=== PATIENT | male | born 1980 | race Caucasian/White ===

== ENCOUNTER 2021-12-05 06:40 | Emergency (ER) | payer MEDICAID, SELFPAY ==
[2021-12-05 06:41] VITALS: BP 152/83; PULSE 84; RESP 17; TEMP 36.6; O2SAT 98; BMI 35.9
--- NOTE | 2021-12-05 07:34 | MRI_ITS ---
STUDY: MRI LUMBAR SPINE WITH AND WITHOUT CONTRAST REASON FOR EXAM: Male, 41 years old. pain, BLE radicular sx -- has ankle tracker that will need removed prior to imaging TECHNIQUE: Standardized fat and water weighted pulse sequences were obtained in the sagittal and axial planes. 25ML Dotarem via IV was administered for the contrast portion of the examination. COMPARISON: None FINDINGS: T12-L1: Normal endplates. Normal disc height, hydration and morphology. Normal bilateral facet joints. Normal central canal and bilateral lateral recesses. Normal bilateral intervertebral neural foramina. Normal lumbar lordosis. There is no substantial scoliosis. Normal conus medullaris that terminates at the L1/L2. L1-2: Mild bilobed disc protrusion produces mild central stenosis and mild bilateral neural foraminal stenosis. L2-3: Normal endplates. Normal disc height, hydration and morphology. Normal bilateral facet joints. Normal central canal and bilateral lateral recesses. Normal bilateral intervertebral neural foramina. L3-4: Normal endplates. Normal disc height, hydration and morphology. Normal bilateral facet joints. Normal central canal and bilateral lateral recesses. Normal bilateral intervertebral neural foramina. L4-5: Normal endplates. Normal disc height, hydration and morphology. Normal bilateral facet joints. Normal central canal and bilateral lateral recesses. Normal bilateral intervertebral neural foramina. L5-S1: Mild broad disc protrusion with a moderate sized right paracentral disc protrusion produces mild spinal stenosis, moderate right lateral recess stenosis, mild left lateral recess stenosis and mild bilateral neural foraminal stenosis. Normal visualized sacral ala. Normal visualized paraspinous soft tissue structures. There is no demonstrated abnormal enhancement. MRI/Spine Lumbar W/WO Contrast IMPRESSION: Multilevel degenerative changes, as described above. Electronically Signed: Siddhartha Dhillon MD at 9:58 EST Tel , Service support ,
--- NOTE | 2021-12-05 07:36 | ED.VIS.BACK ---
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 The pain radiates down both of his legs posteriorly to the feet. The left is worse with regards to pain and numbness but both are affected. He denies any perineal or anal/genitalia involvement. He has been urinating okay without retention or incontinence, his last bowel movement was around 13 hours ago and was unremarkable, and without symptoms of bowel retention or incontinence. He is not an IV drug user and has had no fevers, and no history of cancer that he knows of. No abdominal pain. No recent illness or injury, but he does repetitive lifting at work. He has never had these back issues before. He has no PCP so he came to the emergency department. [facility] Medical History no medical history no medical history Home Medications ferrous sulfate [Iron (ferrous sulfate)] 325 mg PO DAILY 12/05/21 [History Last Taken Unknown] hydrocodone-acetaminophen 1 tab PO Q4H PRN PRN 3 Days #18 tablet 12/05/21 [Rx Last Taken Unknown] multivitamin 1 tab PO DAILY 12/05/21 [History Last Taken Unknown] Allergy/AdvReac Type Severity Reaction Status Date / Time naproxen [From Naprosyn] Allergy Hives Verified 12/05/21 06:46 Surgical History (Updated 12/05/21 @ 07:[address] Stewart Tran MD) History of hand surgery History of herniorrhaphy Social History Smoking Status: Current every day smoker tobacco type: cigarettes ROS ROS ED Constitutional Constitutional ED: Denies chills or fever(s) Eyes Eyes: Denies change in vision or diplopia ENT ENT ED: Denies rhinorrhea or sore throat Cardiovascular Cardiovascular: Denies chest pain or palpitations Respiratory/Chest Respiratory/Chest: Denies cough or dyspnea Gastrointestinal Gastrointestinal: Denies abdominal pain, constipation, fecal incontinence, nausea or vomiting Genitourinary Genitourinary ED: Reports other Details: no urinary retention ; Denies abdominal discomfort or urinary incontinence Musculoskeletal Musculoskeletal: Reports as per HPI and back pain; Denies neck pain Integumentary Denies rash or wounds Neurologic Neurologic: Reports paresthesias and radicular pain; Denies headache(s) or weakness Psychiatric Psychiatric: Denies anxiety or suicidal thoughts EXAM Physical Exam Const Vital Signs: 12/05/21 06:41 Temperature 97.9 F Temperature Source Temporal Pulse Rate 84 Respiratory Rate 17 Blood Pressure 152/83 H Blood Pressure Mean 106 Pulse Ox 98 Oxygen Delivery Method Room Air Positive well nourished, well developed and obese General Appearance ED: well developed and NAD Nutritional Appearance: obese HEENT Reports moist mucous membranes Negative for trauma or tenderness Eyes PERRL and EOMs intact bilaterally Neck full ROM and supple Resp normal respiratory effort and clear to auscultation bilaterally Cardio regular rate, regular rhythm and no murmurs GI normal to inspection, nondistended, normoactive bowel sounds, soft to palpation and non-tender Auscultation: normoactive bowel sounds Palpation: soft Rectal Exam: abnormal sphincter tone decreased (Suspected decreased, but obesity limits exam somewhat) and other Other Details: Nonbloody light brown stool present ; Negative for external hemorrhoid(s), anal fissure or tenderness Groin / Perineum Exam: Negative for erythema, lesions, perineal induration, perineum crepitus or tenderness Back/Spine normal to inspection General Back: other FROM Thoracic Spine / Upper Back: paraspinal muscle tenderness Lumbar Spine / Lower Back: ROM limited and straight leg raise negative bilaterally Extremity normal to inspection, full ROM and no pedal edema General Extremety ED: Negative for edema, pulses abnormal or tenderness General Extremity: Negative for edema or pulses abnormal Neuro oriented x3 Neuro Narrative: Antalgic gait. Lower extremity strength intact but limited evaluation due to pain in back with moving lower extremities. Sensorium / Orientation: alert Motor Exam: muscle tone normal throughout and clonus absent Deep Tendon Reflexes: Rt Patellar (L4): 2+, Lt Patellar (L4): 2+, Rt Ankle (S1): 2+ and Lt Ankle (S1): 2+ Deep Tendon Reflexes Back: Rt Patellar (L4): 2+, Lt Patellar (L4): 2+, Rt Ankle (S1): 2+ and Lt Ankle (S1): 2+ Plantar Reflex: Downgoing: bilateral Psych mental status grossly normal and thought process normal Skin no rashes or lesions noted and no wounds MDM MDM MDM Narrative Medical decision making narrative: I feel the patient needs a stat MRI in order to ensure he does not have emergent compressive syndrome in his lumbosacral spine. Blood work was also obtained in order to foot findings in the context. We had to wait for the [facility]'s department/chief technical officer to respond so we can get his ankle bracelet off in order to safely enter the MRI machine. The results of the MRI were discussed with the patient, he has 2 different levels with disc issues, one is at T12-L1 and the other which is more likely to be causing the patient's symptoms is at L5-S1. Nothing here that requires emergent surgery. Patient will be given note for work, lifting restrictions, prescription for analgesics, and referral to spine. Lab Data Attestation: I reviewed the patient's lab results. Labs: Laboratory Results - last 24 hr 12/05/21 12/05/21 07:53 07:53 WBC 11.7 H RBC 4.57 L Hgb 14.3 Hct 42.0 MCV 91.9 MCH 31.3 MCHC 34.0 RDW Std Deviation 43.8 RDW Coeff of Loreta 13.1 Plt Count 235 MPV 10.2 Immature Gran % (Auto) 0.300 Neut % (Auto) 67.0 Lymph % (Auto) 23.2 [place] % (Auto) 6.3 Eos % (Auto) 2.5 Baso % (Auto) 0.7 Absolute Neuts (auto) 7.8 H Absolute Lymphs (auto) 2.70 Nucleated RBC % 0 Sodium 138 Potassium 3.9 Chloride 107 Carbon Dioxide 25.0 Anion Gap 6 BUN 15 Creatinine 0.82 Estim Creat Clear Calc 140.62 Est GFR (MDRD) Af Amer 133 Est GFR (MDRD) Non-Af 110 BUN/Creatinine Ratio 18.2 Glucose 101 Calcium 9.1 Radiography Diagnostic Testing: Clinical Impression(s) from Imaging Studies Lumbar Spine MRI 12/05/21 07:34 IMPRESSION: Multilevel degenerative changes, as described above. Electronically Signed: Siddhartha Dhillon MD at 9:58 EST Tel , Service support , STUDY: MRI LUMBAR SPINE WITH AND WITHOUT CONTRAST REASON FOR EXAM: Male, 41 years old. pain, BLE radicular sx -- has ankle tracker that will need removed prior to imaging TECHNIQUE: Standardized fat and water weighted pulse sequences were obtained in the sagittal and axial planes. 25ML Dotarem via IV was administered for the contrast portion of the examination. COMPARISON: None FINDINGS: T12-L1: Normal endplates. Normal disc height, hydration and morphology. Normal bilateral facet joints. Normal central canal and bilateral lateral recesses. Normal bilateral intervertebral neural foramina. Normal lumbar lordosis. There is no substantial scoliosis. Normal conus medullaris that terminates at the L1/L2. L1-2: Mild bilobed disc protrusion produces mild central stenosis and mild bilateral neural foraminal stenosis. L2-3: Normal endplates. Normal disc height, hydration and morphology. Normal bilateral facet joints. Normal central canal and bilateral lateral recesses. Normal bilateral intervertebral neural foramina. L3-4: Normal endplates. Normal disc height, hydration and morphology. Normal bilateral facet joints. Normal central canal and bilateral lateral recesses. Normal bilateral intervertebral neural foramina. L4-5: Normal endplates. Normal disc height, hydration and morphology. Normal bilateral facet joints. Normal central canal and bilateral lateral recesses. Normal bilateral intervertebral neural foramina. L5-S1: Mild broad disc protrusion with a moderate sized right paracentral disc protrusion produces mild spinal stenosis, moderate right lateral recess stenosis, mild left lateral recess stenosis and mild bilateral neural foraminal stenosis. Normal visualized sacral ala. Normal visualized paraspinous soft tissue structures. There is no demonstrated abnormal enhancement. Discharge Plan Triage Chief Complaint: Back ED Provider: Stewart Tran Dx/Rx/DC Orders Clinical Impression: Acute bilateral low back pain with bilateral sciatica, Herniation of intervertebral disc between L5 and S1 Instructions: ED Herniated Intervertebral Disk Prescriptions: New hydrocodone-acetaminophen [hydrocodone-acetaminophen] 1 TABLET tablet 1 tab PO Q4H PRN PRN (Reason: Pain) 3 Days Qty: 18 RF: 0 No Action multivitamin Tablet 1 tab PO DAILY RF: 0 ferrous sulfate [Iron (ferrous sulfate)] 325 mg (65 mg iron) Tablet 325 mg PO DAILY RF: 0 Stand Alone Forms: ED Work / School Excuse, Work Status Form Primary Care Provider: Care Physician,No Primary Referrals: Vipul Oakley DO [STAFF PHYSICIAN] - As soon as possible Care Physician,No Primary [Primary Care Provider] - Disposition Disposition: Home, Self Care
[2021-12-05] MEDS: Morphine 4 MG/ML Syringe IV (08:03)
[2021-12-05 08:11] LABS: Absolute Neutrophil Count 7.8 X10^3/uL (2.0-7.7); Basophil# 0.08 X10^3/uL; Basophil% 0.7 % (0-1); Eosinophil# 0.29 X10^3/uL; Eosinophils% 2.5 % (0-5); Hemoglobin 14.3 g/dL (13.0-16.5); Lymphocyte % 23.2 % (19-41); Mean Corpuscular Hgb 31.3 pg (27.0-32.0); Mean Corpuscular Volume 91.9 fL (80-94); Mean Platelet Vol. 10.2 fl (6.2-12.0); Monocyte# 0.74 X10^3/uL; Monocyte% 6.3 % (0-10); NRBC Flagged by Analyzer 0 % (0-5); Neutrophil # 7.81 X10^3/uL (2.7-7.7); Platelet Count 235 K/mm3 (150-450); RBC Distribution Width CV 13.1 % (11.6-14.6); RBC Distribution Width SD 43.8 fl (35.1-43.9); Red Blood Count 4.57 M/mm3 (4.6-6.2); White Blood Count 11.7 K/mm3 (4.4-11.0)
[2021-12-05 08:23] LABS: Anion Gap 6 (5-15); BUN 15 mg/dL (7-18); BUN/Creat Ratio 18.2 RATIO (10-20); Calcium,Total 9.1 mg/dL (8.5-10.1); Chloride 107 mmol/L (98-107); Creatinine, Serum 0.82 mg/dL (0.70-1.30); EST Glomerular Filtration Rate 110 mL/min (>60); Est Glom Filt Rate - Afr Amer 133 mL/min (>60); Estimated Creatinine Clearance 140.62 ml/min; Glucose 101 mg/dL (74-106); Potassium 3.9 mmol/L (3.5-5.1); Sodium Level 138 mmol/L (136-145)
== END 2021-12-05 10:54 | disposition home or self-care (01) ==
PROVIDERS: Emergency Provider Emergency Medicine; Visit Provider Emergency Medicine
DX: M54.42 Lumbago with sciatica, left side (principal); M51.27 Other intervertebral disc displacement, lumbosacral region; M54.41 Lumbago with sciatica, right side; F17.210 Nicotine dependence, cigarettes, uncomplicated; E66.9 Obesity, unspecified; Z68.35 Body mass index [BMI] 35.0-35.9, adult
CPT/HCPCS: 72158; 80048; 85025; 96374; 99283; A9575; A4216

== ENCOUNTER 2023-07-21 13:52 | Emergency (ER) | payer MEDICAID, SELFPAY ==
[2023-07-21 13:54] VITALS: BP 183/109; PULSE 113; RESP 16; TEMP 36.6; O2SAT 99; BMI 38.4
--- NOTE | 2023-07-21 15:06 | EKG12_ITS ---
Test Reason : DETOX Blood Pressure : / mmHG Vent. Rate : 085 BPM Atrial Rate : 085 BPM P-R Int : 160 ms QRS Dur : 086 ms QT Int : 394 ms P-R-T Axes : 047 076 047 degrees QTc Int : 468 ms Normal sinus rhythm Normal ECG Confirmed by FRANCO VERMA MD ([id number]), advertising editor BRI CHAVEZ ([id number]) on 07/29/2023 7:32:30 AM Referred By: KENNETH Confirmed By:FRANCO VERMA MD
--- NOTE | 2023-07-21 15:11 | EDS_ITS ---
HPI <GABI Cooper - Last Filed: 07/21/23 19:28> History of Present Illness Chief Complaint: Substance Abuse Narrative Narrative: Patient is a 43-year-old male with history of hypertension, tobacco use who presents to the emergency department for bizarre behavior as well as using methamphetamine. Patient is here with his friend and his daughter. Per the patient, he has been using methamphetamines significant over the last 1 week. The patient is now having bizarre paranoid behavior. He thinks that the entire family is plotting against him. He did send some troubling text to his sister as well as to his daughter. Patient is denying any suicidal homicidal behavior here. However patient is experiencing paranoia and intermittent hallucinations. PFSH <GABI Cooper - Last Filed: 07/21/23 19:28> PFSH Home Medications ferrous sulfate 325 mg (65 mg iron) tablet (Iron (ferrous sulfate)) 325 mg PO DAILY 12/05/21 [History Last Taken Unknown] hydrocodone-acetaminophen 5-325mg 5mg-325mg 1 tab PO Q4H PRN PRN Pain 3 days #18 TABLETS 12/05/21 [Rx Last Taken Unknown] multivitamin 1 tab PO DAILY 12/05/21 [History Last Taken Unknown] Allergy/AdvReac Type Severity Reaction Status Date / Time naproxen [From Naprosyn] Allergy Hives Verified 07/21/23 13:57 Surgical History History of hand surgery History of herniorrhaphy Social History (Updated 12/20/21 @ 10:10 by Jessica Hannah) household members: family Smoking Status: Current every day smoker tobacco type: cigarettes ROS <GABI Cooper - Last Filed: 07/21/23 19:28> ROS ED ROS Narrative Constitutional: Negative for fever, chills, weight loss, weakness Eyes: Negative for vision loss, vision change, double vision ENT: Negative for any sore throat, ear pain, congestion Cardiovascular: Negative for any chest pain, tightness, palpitations Respiratory: Negative for any cough, sputum production, hemoptysis, dyspnea, dyspnea on exertion, orthopnea Gastrointestinal: Negative for any abdominal pain, nausea, vomiting, diarrhea, constipation, blood in stool, blood in vomit : Negative for any urinary frequency, dysuria, retention, blood in urine Muscle skeletal: Negative for any muscle joint pain, stiffness, myalgias, arthralgias, neck pain, back pain Neurological: Negative for any headache, syncope, numbness or tingling, dizziness Skin: Negative for any rashes, lumps, itching, abrasions, lacerations Psychiatric: Negative for any depression, suicidal ideation, homicidal ideation. Positive for anxiety, paranoia. Hematologic: Negative for any easy bruising, excessive bruising, easy bleeding Allergies: Negative for any eczema, hives, rash EXAM <GABI Cooper - Last Filed: 07/21/23 19:28> Physical Exam Narrative Exam Narrative: Vital signs reviewed. Patient is looking around the room, he does look nervous, he does state things that he thinks that the band is moving secondary to there being devices in it. He also thinks that there are people listening in the sebast[place]. He denies any suicidal homicidal ideation. HEET: Head normocephalic atraumatic, TMs clear bilaterally. Posterior pharynx is clear, moist mucous membranes. Nares clear bilaterally. Neck: Supple with no lymphadenopathy or tenderness. No signs of meningismus, negative jolt sign. Cardiac: Regular rate and rhythm no murmurs gallops or rubs, equal peripheral pulses bilaterally. Respiratory: Lateral expiratory wheezes.. No chest tenderness. Abdomen: Soft, nontender, nondistended. No abdominal bruit or pulsatile masses. No hepatosplenomegaly Extremities: No peripheral edema, no signs of gross trauma or deformity. Active full range of motion of all extremities. Neuro: Cranial nerves II through XII intact, no focal neurological deficits. Skin: Clean dry and intact with no rash, purpura, petechiae, vesicles or pustules. Backs/flank: No CVA tenderness, no midline spinal tenderness, no deformity. Psych: Appears to be intoxicated with methamphetamines. Patient denies any suicidal homicidal ideation however he is acting bizarre. He does have paranoia. Const Vital Signs: 07/21/23 13:54 Temperature 97.8 F Temperature Source Temporal Pulse Rate 113 H Respiratory Rate 16 Blood Pressure 183/109 H Blood Pressure Mean 133 Pulse Ox 99 Oxygen Delivery Method Room Air <Dr. Joshua Sandoval MD - Last Filed: 07/21/23 15:54> Physical Exam Const Vital Signs: 07/21/23 13:54 Temperature 97.8 F Temperature Source Temporal Pulse Rate 113 H Respiratory Rate 16 Blood Pressure 183/109 H Blood Pressure Mean 133 Pulse Ox 99 Oxygen Delivery Method Room Air [facility] <Lalito Danielle NPKelsiC - Last Filed: 07/21/23 19:28> [facility] Lab Data Labs: Laboratory Results - last 24 hr 07/21/23 07/21/23 15:25 16:55 WBC 10.4 RBC 4.71 Hgb 15.4 Hct 44.8 MCV 95.1 H MCH 32.7 H MCHC 34.4 RDW Std Deviation 42.5 RDW Coeff of Loreta 12.2 Plt Count 217 MPV 10.8 Immature Gran % (Auto) 0.800 Neut % (Auto) 66.7 Lymph % (Auto) 22.1 [place] % (Auto) 8.8 Eos % (Auto) 0.9 Baso % (Auto) 0.7 Absolute Neuts (auto) 6.9 Absolute Lymphs (auto) 2.30 Nucleated RBC % 0 Sodium 137 Potassium 3.6 Chloride 109 H Carbon Dioxide 21.0 Anion Gap 7 BUN 10 Creatinine 0.92 Estim Creat Clear Calc 122.85 Est GFR (MDRD) Af Amer 117 Est GFR (MDRD) Non-Af 97 BUN/Creatinine Ratio 10.9 Glucose 110 H Calcium 9.3 Urine Opiates Screen NEGATIVE Urine Methadone Screen NEGATIVE Ur Barbiturates Screen NEGATIVE Ur Phencyclidine Scrn NEGATIVE Ur Amphetamines Screen POSITIVE H MDMA (Ecstasy) Screen POSITIVE H U Benzodiazepines Scrn NEGATIVE Urine Cocaine Screen NEGATIVE U Cannabinoids Screen NEGATIVE Ur Drug Screen Comment EKG Normal sinus rhythm, rate of 85 bpm: Attestation: I personally reviewed and interpreted this EKG as follows: Interpretation: Sinus Rhythm Comments: 85 bpm, FL interval 160 ms, QRS duration 86 ms, no acute ST elevation, no acute infarct noted Treatment and Re-Evaluation :: Patient is acting bizarre, paranoid. Patient does admit to using methamphetamines over the last week. Patient's last use was yesterday morning. Patient has not slept for 3 days. Patient is here with family is concerning for his behavior. At this time, patient was given 1 mg of Ativan.Patient will have basic laboratory values done looking for any electrolyte abnormality. EKG was unremarkable. Patient will receive urine drug screen. Patient does have his father in the room with him. Patient CBC, chemistries were unremarkable. Drug screen is not back yet. Patient given IV fluids. Patient is in a safe space, and is stable. Patient laboratory values were unremarkable CBC was unremarkable, chemistries were unremarkable, patient's toxicology screens were positive for ecstasy as well as amphetamines. On reassessment, the patient was acting much more appropriate. I spoke with the patient the patient's father they feel comfortable taking the patient home. The patient recognizes he needs to quit methamphetamines. He no longer feels paranoid like he did. He has no suicidal homicidal ideation. The father feels comfortable taking home. All questions answered, patient stable for discharge <Dr. Joshua Sandoval MD - Last Filed: 07/21/23 15:54> [facility] MDM Narrative Medical decision making narrative: I have personally performed a face to face assessment of the patient and have reviewed the ANJELICA Note. I performed a substantive portion of the visit including all aspects of the following. My carter findings include: History is 43-year-old male that I am evaluate with our nurse practitioner. Has been on a methamphetamine carrizales. States he smokes it. Has been having hallucinations. Denies any psychiatric history. Exam is [well-appearing 43-year-old male. Vital signs stable afebrile. Patient coming by his father. H EENT exam unremarkable. Neck nontender. No lymphadenopathy. Lungs clear to auscultation bilaterally. Heart regular rhythm no murmur. Abdomen soft nontender. Extremities moves all 4. Calves are nontender without edema. Neurologically is awake and alert. NIH is 0. Normal motor strength. Answering questions following commands.] Medical Decision Making [43-year-old male methamphetamine abuse. Hallucinations and psychosis due to methamphetamine. Currently he is calm and acting normally. Screening labs being obtained. He does not want detox.] Other additions or changes: [None] Lab Data Attestation: I reviewed the patient's lab results. Lab results narrative: CBC normal. White count of 10.4. H&H of 15 and 44. Platelets 217. Labs: Laboratory Results - last 24 hr 07/21/23 07/21/23 15:25 16:55 WBC 10.4 RBC 4.71 Hgb 15.4 Hct 44.8 MCV 95.1 H MCH 32.7 H MCHC 34.4 RDW Std Deviation 42.5 RDW Coeff of Loreta 12.2 Plt Count 217 MPV 10.8 Immature Gran % (Auto) 0.800 Neut % (Auto) 66.7 Lymph % (Auto) 22.1 [place] % (Auto) 8.8 Eos % (Auto) 0.9 Baso % (Auto) 0.7 Absolute Neuts (auto) 6.9 Absolute Lymphs (auto) 2.30 Nucleated RBC % 0 Sodium 137 Potassium 3.6 Chloride 109 H Carbon Dioxide 21.0 Anion Gap 7 BUN 10 Creatinine 0.92 Estim Creat Clear Calc 122.85 Est GFR (MDRD) Af Amer 117 Est GFR (MDRD) Non-Af 97 BUN/Creatinine Ratio 10.9 Glucose 110 H Calcium 9.3 Urine Opiates Screen NEGATIVE Urine Methadone Screen NEGATIVE Ur Barbiturates Screen NEGATIVE Ur Phencyclidine Scrn NEGATIVE Ur Amphetamines Screen POSITIVE H MDMA (Ecstasy) Screen POSITIVE H U Benzodiazepines Scrn NEGATIVE Urine Cocaine Screen NEGATIVE U Cannabinoids Screen NEGATIVE Ur Drug Screen Comment Rhythm Strip Rhythm Strip: Sinus Rhythm Rate: 85 Ectopy: None EKG Initial EKG: Attestation: I personally reviewed and interpreted this EKG as follows: Interpretation: Sinus Rhythm and No Acute Injury Pattern Comments: Normal sinus rhythm rate 85 no acute signs of NE nor ischemia nor dysrhythmia. Discharge Plan Triage Chief Complaint: Substance Abuse ED Midlevel Provider: Lalito Danielle ED Provider: Joshua Sandoval Dx/Rx/DC Orders Clinical Impression: Amphetamine use, Drug-induced paranoia or hallucinations Instructions: Meth Abuse Addiction, ED Psychosis Prescriptions: No Action multivitamin Tablet 1 tab PO DAILY ferrous sulfate [Iron (ferrous sulfate)] 325 mg (65 mg iron) Tablet 325 mg PO DAILY hydrocodone-acetaminophen [hydrocodone-acetaminophen] 1 TABLET tablet 1 tab PO Q4H PRN PRN (Reason: Pain) 3 Days Qty: 18 0RF Primary Care Provider: Care Physician,No Primary Referrals: Care Physician,No Primary [Primary Care Provider] - [facility] [Non-Staff] - Activity Restrictions/Additional Instructions: Follow-up outpatient. This is a drug abuse place Disposition Disposition: Home, Self Care
[2023-07-21] MEDS: 0.9% Normal Saline (1000mL) 1,000 ML 1000 ML IV (15:24)
[2023-07-21] MEDS: LORazepam 2 MG/ML Syringe 1 MG IV (15:25)
[2023-07-21 15:44] LABS: Absolute Neutrophil Count 6.9 X10^3/uL (2.0-7.7); Basophil# 0.07 X10^3/uL; Basophil% 0.7 % (0-1); Eosinophil# 0.09 X10^3/uL; Eosinophils% 0.9 % (0-5); Hematocrit 44.8 % (40-54); Hemoglobin 15.4 g/dL (13.0-16.5); Lymphocyte % 22.1 % (19-41); Mean Corp Hgb Conc 34.4 g/dL (32-36); Mean Corpuscular Hgb 32.7 pg (27.0-32.0); Mean Corpuscular Volume 95.1 fL (80-94); Mean Platelet Vol. 10.8 fl (6.2-12.0); Monocyte# 0.92 X10^3/uL; Monocyte% 8.8 % (0-10); NRBC Flagged by Analyzer 0 % (0-5); Neutrophil # 6.94 X10^3/uL (2.7-7.7); Neutrophil % 66.7 % (47-70); Platelet Count 217 K/mm3 (150-450); RBC Distribution Width CV 12.2 % (11.6-14.6); RBC Distribution Width SD 42.5 fl (35.1-43.9); Red Blood Count 4.71 M/mm3 (4.6-6.2); White Blood Count 10.4 K/mm3 (4.4-11.0)
[2023-07-21 16:02] LABS: Anion Gap 7 (5-15); BUN 10 mg/dL (7-18); BUN/Creat Ratio 10.9 RATIO (10-20); Calcium,Total 9.3 mg/dL (8.5-10.1); Chloride 109 mmol/L (98-107); Creatinine, Serum 0.92 mg/dL (0.70-1.30); EST Glomerular Filtration Rate 97 mL/min (>60); Est Glom Filt Rate - Afr Amer 117 mL/min (>60); Estimated Creatinine Clearance 122.85 ml/min; Glucose 110 mg/dL (74-106); Potassium 3.6 mmol/L (3.5-5.1); Sodium Level 137 mmol/L (136-145)
[2023-07-21 17:26] LABS: Amphetamine Urine VISTA POSITIVE (<1000 ng/mL); Barbiturate Urine VISTA NEGATIVE (< 200 ng/mL); Benzodiazepine Urine VISTA NEGATIVE (< 200 ng/mL); Cocaine Urine VISTA NEGATIVE (< 300 ng/mL); Ecstacy Urine VISTA POSITIVE (< 500 ng/mL); Methadone Urine VISTA NEGATIVE (< 300 ng/mL); PCP Urine VISTA NEGATIVE (< 25 ng/mL); THC Urine VISTA NEGATIVE (< 50 ng/mL); Vista UDS pH Range 5
== END 2023-07-21 20:08 | disposition home or self-care (01) ==
PROVIDERS: Nurse Practitioner; Emergency Provider Emergency Medicine; Visit Provider Emergency Medicine
DX: F15.99 Other stimulant use, unspecified with unspecified stimulant-induced disorder (principal); F29 Unspecified psychosis not due to a substance or known physiological condition; F17.210 Nicotine dependence, cigarettes, uncomplicated
CPT/HCPCS: 96361; 80048; 80307; 85025; 93005; 96374; 99283; J7030; A4216

== ENCOUNTER 2023-10-31 19:09 | Emergency (ER) | payer MEDICAID, SELFPAY ==
[2023-10-31 19:10] VITALS: BP 150/95; PULSE 83; RESP 22; TEMP 37.2; O2SAT 99
--- NOTE | 2023-10-31 20:03 | EKG12_ITS ---
Test Reason : CP Blood Pressure : / mmHG Vent. Rate : 075 BPM Atrial Rate : 075 BPM P-R Int : 172 ms QRS Dur : 088 ms QT Int : 386 ms P-R-T Axes : 063 076 049 degrees QTc Int : 431 ms Normal sinus rhythm Normal ECG Confirmed by LUCI JOHNSON, FRANCO ([id number]), field map editor KATHY BARRERA ([id number]) on 11/01/2023 2:04:22 PM Referred By: RAJAN Confirmed By:FRANCO VERMA MD
--- NOTE | 2023-10-31 20:07 | EDS_ITS ---
HPI History of Present Illness Chief Complaint: Shortness of Breath Informant: patient Onset/Context/Timing Onset: Weeks Narrative Narrative: Patient presents with continued shortness of breath, cough, chest pain after having a positive home COVID test 2 and half weeks ago. He states he is really been sick for about the last month. He tested positive for COVID 2 and half weeks ago. He states he got slightly better but once he stopped taking his cough syrup with narcotic in it he started getting worse again. He states he has not actually measured a fever but will have sweats and chills. He has chest congestion but states he is not bringing up any sputum with his cough. He reports an aching pain in the center of his chest. He states he just feels absolutely exhausted and any activity wipes him out. PFSH PFSH Medical History no medical history no medical history Home Medications ferrous sulfate 325 mg (65 mg iron) tablet (Iron (ferrous sulfate)) 325 mg PO DAILY 12/05/21 [History Last Taken Unknown] hydrocodone-acetaminophen 5-325mg 5mg-325mg 1 tab PO Q4H PRN PRN Pain 3 days #18 TABLETS 12/05/21 [Rx Last Taken Unknown] multivitamin 1 tab PO DAILY 12/05/21 [History Last Taken Unknown] prednisone 20 mg tablet 40 mg (2 x 20 mg) PO DAILY #8 tabs 10/31/23 [Rx Last Taken Unknown] Allergy/AdvReac Type Severity Reaction Status Date / Time naproxen [From Naprosyn] Allergy Hives Verified 10/31/23 19:13 Surgical History History of hand surgery History of herniorrhaphy Social History household members: family Smoking Status: Current every day smoker tobacco type: cigarettes ROS ROS ED Constitutional Constitutional ED: Reports chills and sweats Eyes Eyes: Denies change in vision or discharge from eye(s) ENT ENT ED: Denies discharge from eye(s), rhinorrhea or sore throat Cardiovascular Cardiovascular: Reports chest pain; Denies palpitations Respiratory/Chest Respiratory/Chest: Reports cough and dyspnea; Denies sputum Gastrointestinal Gastrointestinal: Denies abdominal pain, diarrhea, nausea or vomiting Genitourinary Genitourinary ED: Denies dysuria Musculoskeletal Musculoskeletal: Reports myalgias; Denies back pain or extremity pain Integumentary Denies Abrasions or rash Neurologic Neurologic: Reports weakness; Denies headache(s) Psychiatric Psychiatric: Denies anxiety or depression Allergic/Immunologic Allergic/Immunologic ED: Denies lip swelling or urticaria EXAM Physical Exam Const Vital Signs: 10/31/23 19:10 10/31/23 20:48 10/31/23 22:38 Temperature 98.9 F Temperature Source Temporal Pulse Rate 83 65 Respiratory Rate 22 H 12 Respiratory Effort Short of Breath Respiratory Depth Deep Respiratory Pattern Tachypnea Normal Blood Pressure 150/95 H Blood Pressure Mean 113 Pulse Ox 99 Oxygen Delivery Method Room Air Room Air Positive well nourished and well developed General Appearance ED: well developed HEENT Reports moist mucous membranes Eyes EOMs intact bilaterally Chest Wall inspection of chest normal and palpation of chest normal Resp normal respiratory effort and clear to auscultation bilaterally Cardio regular rate and regular rhythm GI non-tender Palpation: soft Extremity normal to inspection Neuro oriented x3 and no sensory deficits noted Motor Exam: strength 5/5 throughout Skin Skin Narrative: Diaphoretic MDM MDM MDM Narrative Medical decision making narrative: Patient placed on conveyor monitor. EKG obtained to evaluate for cardiac arrhythmia/ischemia. Chest x-ray obtained to evaluate for acute lung pathology, cardiac size, or mediastinal abnormality. Labwork obtained to evaluate for leukocytosis, anemia, and electrolyte derangement. Blood cultures obtained. Patient given IV fluids along with Robitussin AC to help control cough. History & Record Review Discussion w/independent historian: Patient and Family Lab Data Attestation: I reviewed the patient's lab results. Labs: Laboratory Results - last 24 hr 10/31/23 20:15 WBC 11.7 H RBC 5.10 Hgb 16.1 Hct 46.1 MCV 90.4 MCH 31.6 MCHC 34.9 RDW Std Deviation 41.0 RDW Coeff of Lore[place] 12.4 Plt Count 202 MPV 10.3 Immature Gran % (Auto) 0.400 Neut % (Auto) 66.0 Lymph % (Auto) 23.9 [place] % (Auto) 7.1 Eos % (Auto) 1.7 Baso % (Auto) 0.9 Absolute Neuts (auto) 7.7 Absolute Lymphs (auto) 2.78 Nucleated RBC % 0 D-Dimer Quant (PE/DVT) < 0.27 L Sodium 138 Potassium 3.7 Chloride 108 H Carbon Dioxide 22.0 Anion Gap 8 BUN 13 Creatinine 1.05 Est GFR (MDRD) Af Amer 100 Est GFR (MDRD) Non-Af 82 BUN/Creatinine Ratio 12.4 Glucose 102 Calcium 9.4 Troponin I High Sens 5 Radiography Chest X-Ray - ED: 1 View, Read by ED Physician, Normal, Heart, Lungs and Mediastinum Diagnostic Testing: Clinical Impression(s) from Imaging Studies Chest X-Ray 10/31/23 20:20 IMPRESSION: No radiographic evidence of acute cardiopulmonary disease. Electronically Signed: Jeff DO Paramjit at 20:53 EST , Treatment and Re-Evaluation :: CBC was white count elevated 11.7 with normal differential. Chemistry studies unremarkable. Troponin is normal at 5 and D-dimer is less than 0.27. Chest x- ray per my interpretation reveals no evidence of focal infiltrate. Radiology interpretation reviewed and agrees. On repeat evaluation patient resting comfortably. Cough is improved with Robitussin AC. Given his smoking history I did give him a DuoNeb treatment. Following this patient states he actually does feel improved and feels as if he can take a deep breath. I will treat him with a course of prednisone and given albuterol MDI. Return instructions are given. Discharge Plan Triage Chief Complaint: Shortness of Breath ED Provider: Rocio Vela Dx/Rx/DC Orders Clinical Impression: Acute viral bronchitis Instructions: ED Bronchitis with Wheezing (Adult) Prescriptions: New prednisone 20 mg tablet 40 mg PO DAILY Qty: 8 0RF No Action multivitamin Tablet 1 tab PO DAILY ferrous sulfate [Iron (ferrous sulfate)] 325 mg (65 mg iron) Tablet 325 mg PO DAILY hydrocodone-acetaminophen [hydrocodone-acetaminophen] 1 TABLET tablet 1 tab PO Q4H PRN PRN (Reason: Pain) 3 Days Qty: 18 0RF Primary Care Provider: Care Physician,No Primary Referrals: Jess Johnston MD [Med Staff - Commercial Maintenance Technician] - As Needed Care Physician,No Primary [Primary Care Provider] - Disposition Disposition: Home, Self Care
--- NOTE | 2023-10-31 20:20 | RAD_ITS ---
INDICATION: cough EXAMINATION/TECHNIQUE: X-RAY - XR Chest 1 View COMPARISON: FINDINGS: LINES/DEVICES: None. LUNGS: No consolidation, edema or effusion. No pneumothorax. MEDIASTINUM AND CARDIOVASCULAR STRUCTURES: Cardiac silhouette not enlarged. Central airways and mediastinal contour are unremarkable. BONES AND SOFT TISSUES: Degenerative vertebral changes. RAD/Chest 1 View (Portable) IMPRESSION: No radiographic evidence of acute cardiopulmonary disease. Electronically Signed: Jeff Yusuf DO at 20:53 EST ,
[2023-10-31 20:26] LABS: Absolute Lymphocyte Count 2.78 X10^3/uL (0.83-4.51); Absolute Neutrophil Count 7.7 X10^3/uL (2.0-7.7); Basophil% 0.9 % (0-1); Eosinophils% 1.7 % (0-5); Hematocrit 46.1 % (40-54); Hemoglobin 16.1 g/dL (13.0-16.5); Lymphocyte # 2.78 X10^3/ul (0.83-4.51); Lymphocyte % 23.9 % (19-41); Mean Corp Hgb Conc 34.9 g/dL (32-36); Mean Corpuscular Hgb 31.6 pg (27.0-32.0); Mean Corpuscular Volume 90.4 fL (80-94); Mean Platelet Vol. 10.3 fl (6.2-12.0); Monocyte# 0.83 X10^3/uL; Monocyte% 7.1 % (0-10); NRBC Flagged by Analyzer 0 % (0-5); Neutrophil # 7.69 X10^3/uL (2.7-7.7); Platelet Count 202 K/mm3 (150-450); RBC Distribution Width CV 12.4 % (11.6-14.6); White Blood Count 11.7 K/mm3 (4.4-11.0)
[2023-10-31] MEDS: 0.9% Normal Saline (1000mL) 1,000 ML 1000 ML IV (20:28)
[2023-10-31] MEDS: guaiFENesin/Codeine 5 ML UDC 10 ML PO (20:28)
[2023-10-31 20:45] LABS: Anion Gap 8 (5-15); BUN 13 mg/dL (7-18); BUN/Creat Ratio 12.4 RATIO (10-20); Calcium,Total 9.4 mg/dL (8.5-10.1); Chloride 108 mmol/L (98-107); Creatinine, Serum 1.05 mg/dL (0.70-1.30); EST Glomerular Filtration Rate 82 mL/min (>60); Est Glom Filt Rate - Afr Amer 100 mL/min (>60); Glucose 102 mg/dL (74-106); Potassium 3.7 mmol/L (3.5-5.1); Sodium Level 138 mmol/L (136-145); Troponin-I HS 5 pg/mL (3.0-78.0)
[2023-10-31 20:48] VITALS: O2SAT 97
[2023-10-31 20:51] LABS: D-Dimer Quantitative (DVT/PE) < 0.27 FEU/ug/m (0.27-0.49)
[2023-10-31] MEDS: Ipratropium/Albuterol Sulfate 3 ML AMPUL.NEB INHALATION (22:36)
[2023-10-31 22:38] VITALS: PULSE 65; RESP 12
[2023-10-31] MEDS: predniSONE 20 MG Tablet 60 MG PO (22:57)
[2023-10-31] MEDS: Albuterol Sulfate 8 gm Inhaler (60 puffs) 2 PUFF INHALATION (23:00)
[2023-10-31 23:03] VITALS: PULSE 89; RESP 22; O2SAT 96
== END 2023-10-31 23:03 | disposition home or self-care (01) ==
PROVIDERS: Emergency Provider Emergency Medicine; Visit Provider Emergency Medicine
DX: J20.9 Acute bronchitis, unspecified (principal); F17.210 Nicotine dependence, cigarettes, uncomplicated
CPT/HCPCS: 71045; 80048; 84484; 85025; 85379; 87040; 93005; 94640; 96360; 96361; 99284; J7030